=== PATIENT | female | born 1995 | race Caucasian/White ===

== ENCOUNTER 2016-07-19 16:02 | Emergency (ER) | payer OTHER, SELFPAY ==
[2016-07-19 16:16] VITALS: BP 113/76
[2016-07-19] MEDS ORDERED: Sodium Chloride 0.9% 10 ML Syringe FLUSH PRN ×2 (16:39→18:52)
[2016-07-19] MEDS ORDERED: Ondansetron 4 MG/2 ML SDV IVPUSH ONE (16:39)
[2016-07-19] MEDS ORDERED: HYDROmorphone 0.5 MG/0.5 ML Syringe IVPUSH ONE ×2 (16:39→19:25)
[2016-07-19] MEDS ORDERED: Sodium Chloride 0.9% 1,000 ML IV SCH (16:45)
--- NOTE | 2016-07-19 17:55 | EDM.PDOC ---
<Raffaele Hancock Divina - Last Filed: 07/19/16 19:12> ED HPI GI/ABDOMINAL - General Chief Complaint: Abdominal Pain Stated Complaint: R SIDE ABDOMINAL PAIN Time Seen by Provider: 07/19/16 16:31 Source of Information: Reports: Patient, RN notes reviewed - History of Present Illness INITIAL COMMENTS - FREE TEXT/NARRATIVE: 21 year old female with onset of RLQ pain early this morning while at work, about 15 hrs ago. The pain has gradually been worsening. Has not been able to sleep after getting off of work. She is nauseated, no vomiting. Occasional chills, no fever. No voiding sx. One loose stool this past morning. No chest or shoulder pain. No prior pevic or abd surgeries. Just finishing a menstrual period. On BCP. states they are "finally regular on the BCP" - Related Data Allergies/ADRs: Allergies Allergy/AdvReac Type Severity Reaction Status Date / Time banana Allergy Hives Verified 07/19/16 16:16 [place] Allergy Hives Uncoded 07/19/16 16:16 bees Allergy Swelling Uncoded 07/19/16 16:16 Home Meds: Home Meds Acetaminophen/oxyCODONE [Percocet 325-5 MG] 1 tab PO Q4H PRN #10 tablet [Rx] Cefuroxime [Ceftin] 500 mg PO BID #14 tablet 07/19/16 [Rx] Ondansetron [Zofran ODT] 4 mg PO Q4H PRN #10 tab.dis 07/19/16 [Rx] Past Medical History Other HEENT History: seasonal allergies, oral surgery Other OB/BYN History: cysts on ovaries - Past Surgical History Other Musculoskeletal Surgeries/Procedures:: ACL reconstruction, staph infection removed from left heal Social & Family History - Family History Neurological: Reports: CVA - Tobacco Use Smoking Status *Q: Current Every Day Smoker Years of Tobacco use: 1 Packs/Tins Daily: 0.1 Second Hand Smoke Exposure: Yes - Caffeine Use Caffeine Use: Reports: Coffee - Alcohol Use Days Per Week of Alcohol Use: 1 Number of Drinks Per Day: 2 Total Drinks Per Week: 2 - Recreational Drug Use Recreational Drug Use: No Drug Use in Last 12 Months: Yes Recreational Drug Type: Reports: Marijuana/Hashish Recreational Drug Use Frequency: Daily Recreational Drug Last Use: t-1 ED ROS GENERAL - Review of Systems Review Of Systems: See Below Constitutional: Reports: chills. Denies: fever HEENT: Reports: No symptoms Respiratory: Denies: Shortness of Breath, Wheezing, Pleuritic Chest Pain Cardiovascular: Denies: Chest pain GI/Abdominal: Reports: Abdominal pain, Diarrhea (one loose stool earlier today) , Nausea. Denies: Vomiting : Reports: no symptoms Musculoskeletal: Reports: back pain (occasional radiation to R back) Skin: Reports: no symptoms Neurological: Reports: No Symptoms ED EXAM, GI/ABD - Physical Exam Exam: See Below General Appearance: alert, mild distress Eyes: bilateral: normal appearance Throat/Mouth: Normal inspection, Normal oropharynx Head: No: facial swelling Neck: supple, full range of motion Respiratory/Chest: no respiratory distress, lungs clear, normal breath sounds Cardiovascular: regular rate, rhythm GI/Abdominal: soft, tenderness (moderate, R lower abd and pelvis) Back Exam: CVA tenderness (R) (mild) Extremities: normal inspection, normal range of motion Neurological: alert, oriented, no motor/sensory deficits Skin Exam: Warm, Dry, Normal color Course - Vital Signs Last Recorded V/S: Last Vital Signs Temp 37.6 C 07/19/16 16:13 Pulse 99 07/19/16 16:13 Resp 16 07/19/16 16:13 BP 113/76 07/19/16 16:13 Pulse Ox 97 07/19/16 16:13 - Orders/Labs/Meds Orders: Active Orders 24 hr Category Date Time Status Peripheral IV Care [RC] . DIRECTED Care 07/19/16 16:40 Active CULTURE URINE [RM] Stat Lab 07/19/16 18:05 Ordered Sodium Chloride 0.9% [Normal Saline] 1,000 ml Med 07/19/16 16:45 Active IV ONETIME Sodium Chloride 0.9% [Saline Flush] Med 07/19/16 16:39 Active 10 ml FLUSH ASDIRECTED PRN Sodium Chloride 0.9% [Saline Flush] Med 07/19/16 18:52 Active 10 ml FLUSH ONETIME PRN Peripheral IV Insertion Adult [OM.PC] Stat Oth 07/19/16 16:39 Ordered Medication Orders Sodium Chloride (Normal Saline) 1,000 mls @ 999 mls/hr IV ONETIME [facility] Last Admin: 07/19/16 16:58 Dose: 999 mls/hr Sodium Chloride (Saline Flush) 10 ml FLUSH ASDIRECTED PRN PRN Reason: Keep Vein Open Last Admin: 07/19/16 17:01 Dose: 10 ml Sodium Chloride (Saline Flush) 10 ml FLUSH ONETIME PRN PRN Reason: IV FLUSH Last Admin: 07/19/16 19:16 Dose: 10 ml Labs: Laboratory Tests 07/19/16 07/19/16 07/19/16 Range/Units 16:45 16:45 16:45 WBC 20.53 H (3.98-10.04) K/mm3 RBC 4.54 (3.98-5.22) M/mm3 Hgb 13.6 (11.2-15.7) gm/L Hct 40.8 (34.1-44.9) % MCV 89.9 (79.4-94.8) fl MCH 30.0 (25.6-32.2) pg MCHC 33.3 (32.2-35.5) g/dl RDW Std Deviation 41.2 (36.4-46.3) fL Plt Count 322 (182-369) K/mm3 MPV 9.1 L (9.4-12.3) fl Neut % (Auto) 82.2 H (34.0-71.1) % Lymph % (Auto) 11.3 L (19.3-51.7) % [place] % (Auto) 6.0 (4.7-12.5) % Eos % (Auto) 0.2 L (0.7-5.8) Baso % (Auto) 0.2 (0.1-1.2) % Neut # (Auto) 16.87 H (1.56-6.13) K/mm3 Lymph # (Auto) 2.31 (1.18-3.74) K/mm3 [place] # (Auto) 1.23 H (0.24-0.36) K/mm3 Eos # (Auto) 0.05 (0.04-0.36) K/mm3 Baso # (Auto) 0.04 (0.01-0.08) K/mm3 Manual Slide Review Abnormal smear Sodium 141 (136-145) mEq/L Potassium 3.8 (3.5-5.1) mEq/L Chloride 102 (98-107) mEq/L Carbon Dioxide 26 (21-32) mEq/L Anion Gap 16.8 H (5-15) BUN 13 (7-18) mg/dL Creatinine 1.0 (0.55-1.02) mg/dL Est Cr Clr Drug Dosing 89.77 mL/min Estimated GFR (MDRD) > 60 (>60) mL/min BUN/Creatinine Ratio 13.0 L (14-18) Glucose 96 (74-106) mg/dL Calcium 9.4 (8.5-10.1) mg/dL Total Bilirubin 0.7 (0.2-1.0) mg/dL AST 12 L (15-37) U/L ALT 23 (14-59) U/L Alkaline Phosphatase 80 (46-116) U/L C-Reactive Protein 1.7 H* (<1.0) mg/dL Total Protein 8.3 H (6.4-8.2) g/dl Albumin 4.7 (3.4-5.0) g/dl Globulin 3.6 gm/dL Albumin/Globulin Ratio 1.3 (1-2) HCG, Qual (NEGATIVE) Urine Color (Yellow) Urine Appearance (Clear) Urine pH (5.0-8.0) Ur Specific [place] (1.005-1.030) Urine Protein (Negative) Urine Glucose (UA) (Negative) Urine Ketones (Negative) Urine Occult Blood (Negative) Urine Nitrite (Negative) Urine Bilirubin (Negative) Urine Urobilinogen (0.2-1.0) Ur Leukocyte Esterase (Negative) Urine RBC (0-5) /hpf Urine WBC (0-5) /hpf Urine WBC Clumps (NOT SEEN) /hpf Ur Epithelial Cells (0-5) /hpf Urine Bacteria (FEW) /hpf Urine Mucus (FEW) /hpf 07/19/16 07/19/16 Range/Units 16:45 18:05 WBC (3.98-10.04) K/mm3 RBC (3.98-5.22) M/mm3 Hgb (11.2-15.7) gm/L Hct (34.1-44.9) % MCV (79.4-94.8) fl MCH (25.6-32.2) pg MCHC (32.2-35.5) g/dl RDW Std Deviation (36.4-46.3) fL Plt Count (182-369) K/mm3 MPV (9.4-12.3) fl Neut % (Auto) (34.0-71.1) % Lymph % (Auto) (19.3-51.7) % [place] % (Auto) (4.7-12.5) % Eos % (Auto) (0.7-5.8) Baso % (Auto) (0.1-1.2) % Neut # (Auto) (1.56-6.13) K/mm3 Lymph # (Auto) (1.18-3.74) K/mm3 [place] # (Auto) (0.24-0.36) K/mm3 Eos # (Auto) (0.04-0.36) K/mm3 Baso # (Auto) (0.01-0.08) K/mm3 Manual Slide Review Sodium (136-145) mEq/L Potassium (3.5-5.1) mEq/L Chloride (98-107) mEq/L Carbon Dioxide (21-32) mEq/L Anion Gap (5-15) BUN (7-18) mg/dL Creatinine (0.55-1.02) mg/dL Est Cr Clr Drug Dosing mL/min Estimated GFR (MDRD) (>60) mL/min BUN/Creatinine Ratio (14-18) Glucose (74-106) mg/dL Calcium (8.5-10.1) mg/dL Total Bilirubin (0.2-1.0) mg/dL AST (15-37) U/L ALT (14-59) U/L Alkaline Phosphatase (46-116) U/L C-Reactive Protein (<1.0) mg/dL Total Protein (6.4-8.2) g/dl Albumin (3.4-5.0) g/dl Globulin gm/dL Albumin/Globulin Ratio (1-2) HCG, Qual Negative (NEGATIVE) Urine Color Yellow (Yellow) Urine Appearance Cloudy H (Clear) Urine pH 6.0 (5.0-8.0) Ur Specific [place] 1.020 (1.005-1.030) Urine Protein 2+ H (Negative) Urine Glucose (UA) Negative (Negative) Urine Ketones Negative (Negative) Urine Occult Blood 3+ H (Negative) Urine Nitrite Positive H (Negative) Urine Bilirubin Negative (Negative) Urine Urobilinogen 0.2 (0.2-1.0) Ur Leukocyte Esterase 2+ H (Negative) Urine RBC 0-5 (0-5) /hpf Urine WBC >100 H (0-5) /hpf Urine WBC Clumps Moderate (NOT SEEN) /hpf Ur Epithelial Cells 0-5 (0-5) /hpf Urine Bacteria Many H (FEW) /hpf Urine Mucus Not seen (FEW) /hpf Meds: Medications Generic Name Dose Route Start Last Admin Trade Name Freq PRN Reason Stop Dose Admin Sodium Chloride 1,000 mls @ 999 mls/hr 07/19/16 16:45 07/19/16 16:58 Normal Saline IV 999 mls/hr ONETIME SONIYA Administration Sodium Chloride 10 ml 07/19/16 16:39 07/19/16 17:01 Saline Flush FLUSH 10 ml ASDIRECTED PRN Administration Keep Vein Open Sodium Chloride 10 ml 07/19/16 18:52 07/19/16 19:16 Saline Flush FLUSH 10 ml ONETIME PRN Administration IV FLUSH Discontinued Medications Generic Name Dose Route Start Last Admin Trade Name Freq PRN Reason Stop Dose Admin Diatrizoate Meglum/Diatrizoate Sod 90 ml 07/19/16 18:52 07/19/16 19:16 Gastrografin 37% PO 07/19/16 18:53 90 ml ONETIME ONE Administration Hydromorphone HCl 0.5 mg 07/19/16 16:39 07/19/16 17:01 Dilaudid IVPUSH 07/19/16 16:40 0.5 mg ONETIME ONE Administration Hydromorphone HCl 0.5 mg 07/19/16 19:25 07/19/16 19:37 Dilaudid IVPUSH 07/19/16 19:26 0.5 mg ONETIME ONE Administration Ceftriaxone Sodium 1 gm/ 100 mls @ 200 mls/hr 07/19/16 19:24 07/19/16 19:45 Sodium Chloride IV 07/19/16 19:53 200 mls/hr ONETIME ONE Administration Iopamidol 125 ml 07/19/16 18:52 07/19/16 19:16 Isovue-300 (61%) IVPUSH 07/19/16 18:53 125 ml ONETIME ONE Administration Ondansetron HCl 4 mg 07/19/16 16:39 07/19/16 16:59 Zofran IVPUSH 07/19/16 16:40 4 mg ONETIME ONE Administration - Re-Assessments/Exams Free Text/Narrative Re-Assessment/Exam: 07/19/16 17:56 hcg is neg. WBC very elevated, over 20,000, CRP mildly elevated, Hcg neg. she continues to be tender RLQ, mild guarding and rebound, will CT abd and pelvis. she did just void a few minutes ago, will check Ua as well. 07/19/16 19:10. Ua does show strong evidence for UTI, probable pyelo. Pt had denied voiding sx so this was not expected. She is in the process of getting her CT scan right now. Will put an order in for rocephin 1 gram IV. change of shift. Will transfer care to Dr Chinchilla. Departure - Departure Disposition: Home, Self-Care 01 Clinical Impression: Pyelonephritis Prescriptions: Acetaminophen/oxyCODONE [Percocet 325-5 MG] 1 tab PO Q4H PRN #10 tablet PRN Reason: Abdominal Pain Cefuroxime [Ceftin] 500 mg PO BID #14 tablet Ondansetron [Zofran ODT] 4 mg PO Q4H PRN #10 tab.dis PRN Reason: Nausea/Vomiting Referrals: Ivelisse Rodriguez [employer] [Primary Care Provider] - Forms: ED Department Discharge Additional Instructions: Return to the emergency room with any questions problems. You did started on 3 medications one of them is Percocet take one every 4 hours as needed for pain. Allow 12 hours after using this medication before driving or returning to work. He been started on Ceftin, or cefuroxime, this is an antibiotic take one twice daily until all gone. You been started on Zofran and this is to help with nausea use as directed. Followup in the clinic on for recheck <Freddy Chinchilla - Last Filed: 07/19/16 20:23> Course - Re-Assessments/Exams Free Text/Narrative Re-Assessment/Exam: 07/19/16 20:14 Assumed care at change of shift her urinalysis is also some suspicious of urinary tract infection she was given a dose of Rocephin urine culture has been set up CT does not show an appendicitis it does show slight increased enhancement of portions of the right ureter consistent with early pyelonephritis. No other abnormalities noted. Patient IV is in this point. The patient would like some for nausea we discussed pain management hydrocodone has not worked well for her in the past she thinks she will be okay with Tylenol and Motrin. Patient received a gram of Rocephin she'll be started on cefuroxime 500 mg twice a day for 7 days she will followup in the clinic on . 07/19/16 20:23 She decided she wanted something stronger for pain she be given 10 Percocet Departure - Departure Time of Disposition: 20:19
[2016-07-19] MEDS ORDERED: Iopamidol 612 MG/ML 150 ML Bottle IVPUSH ONE (18:52)
[2016-07-19] MEDS ORDERED: Diatrizoate Meglumine/Diatrizoate Sodium 37% 120 ML Bottle PO ONE (18:52)
[2016-07-19] MEDS ORDERED: cefTRIAXone 1 GM in Sodium Chloride 0.9% 100 ML IV ONE (19:24)
--- NOTE | 2016-07-19 19:46 | CT ---
CT abdomen and pelvis Technique: Multiple axial sections were obtained from above the dome of the diaphragm inferiorly through the pubic symphysis. Intravenous and oral contrast was utilized. Delayed images were also obtained through the bladder. Findings: Small portion of the visualized lung bases are clear. Liver shows no focal parenchymal abnormality. Spleen appears within normal limits. Adrenal glands show no nodule. Kidneys show contrast enhancement without hydronephrosis or mass. Right ureter shows slight increased enhancement but no findings of ureteral obstruction are seen. Pancreas appears within normal limits. Aorta shows no aneurysmal dilatation. No retroperitoneal adenopathy or mesenteric abnormalities are seen. No pelvic mass or adenopathy is seen. Appendix is seen which appears normal. No bowel dilatation is seen. No free fluid or inflammatory change is seen. Bone window settings were reviewed which appear within normal limits for the patient's age. Delayed images shows contrast within the distal ureters and bladder. Impression: 1. Slight increased enhancement of portions of the right ureter. This can be seen with early pyelonephritis. Please correlate if patient has correlating symptoms. 2. Appendix is seen and appears normal. 3. No additional abnormality is identified on CT study of the abdomen and pelvis. Diagnostic code #3
== END 2016-07-19 20:30 | disposition home or self-care (01) ==
LOC: JD.ED 16:02
DX: N10 Acute pyelonephritis (principal); F17.200 Nicotine dependence, unspecified, uncomplicated; Z91.018 Allergy to other foods; Z91.030 Bee allergy status
CPT/HCPCS: 36415; 74177; 80053; 81001; 84703; 85025; 86140; 87086; 96361; 96365; 96375; 96376; 99284; J0696; J1170; J2405; J7030; J7040; J7050; Q9963; Q9967; 87088; 87186